=== PATIENT | female | born 2005 | race Caucasian/White ===

== ENCOUNTER 2024-11-16 19:30 | Emergency (ER) | payer BC, SELFPAY ==
[2024-11-16 19:37] VITALS: BP 124/65; PULSE 114; RESP 18; TEMP 36.9; O2SAT 98; BMI 22.3
--- NOTE | 2024-11-16 19:47 | CRLHL7_ITS ---
For Patients: As a result of the Century Cures Act, medical imaging exams and procedure reports are released immediately into your electronic medical record. You may view this report before your referring provider. If you have questions, please contact your health care provider. INDICATION: Injury to left face. COMPARISON: None. TECHNIQUE: Noncontrast CT of the face. FINDINGS: Asymmetric soft tissue swelling of the left face. There is an underlying fracture of the floor of the left orbit with a depressed fracture fragment extending into the left maxillary sinus cavity. Small amount of hyperdense blood products layering posteriorly within the left maxillary sinus. There is herniation of extraconal fat across the fracture defect (series 5, image 54) but no entrapment of the inferior rectus muscle. Fracture may also cross the infraorbital neural foramen. At injury to the nerve cannot be excluded. Remainder of the left orbit is normal. No retrobulbar hematoma. Normal left orbit. Normal symmetric extra-ocular muscles. No other facial fractures. The nasal bones and zygomatic arches are intact. Mastoid air cells are clear. Nasopharynx and oropharynx are clear. No inflammation within the paravertebral fat pads are Rich rule space. IMPRESSION: 1. Posttraumatic left orbital floor fracture. Herniation of extraconal fat across the fracture defect but no entrapment of the inferior rectus muscle. 2. Fracture across the left infraorbital neural foramen with possible injury to the underlying nerve. 3. No other facial fractures. 4. Remainder of the left orbit is normal. No retrobulbar hematoma Please note that all CT scans at this facility use dose modulation, iterative reconstruction, and/or weight-based dosing when appropriate to reduce radiation dose to as low as reasonably achievable. Dictated by William Olea MD @ 11/16/2024 8:03:53 PM (Electronically Signed)
--- NOTE | 2024-11-16 20:03 | ED_ITS ---
HPI - General Adult General Chief complaint: Eye Problems Stated complaint: Hit on left side of face with a Hockey Puck Time Seen by Provider: 11/16/24 19:44 History of Present Illness HPI narrative: This 19-year-old female comes in because of a injury to her face that just occurred prior to arrival. A trauma team activation was initiated. She was a spectator at a hockey game and the hockey puck was hit up high and hit her in the left cheek just below her eye. She has got a 1.5 cm laceration in this area. Her eye has swollen enough to where she is unable to open the eyelids. She does not report any pain when moving her eyes in their range of motion. She did not have loss of consciousness. She does not report any other injury. Related Data Allergies Allergy/AdvReac Type Severity Reaction Status Date / Time Penicillins Allergy Intermediate Verified 11/16/24 19:42 Review of Systems Status of ROS: Reports: 10 or more systems reviewed and unremarkable except as noted in History and below Narrative: Constitutional: No fevers, no weight gain or loss. Eyes: No discharge. No vision changes. HENT: No congestion, no sore throat, no ear pain. Cardiovascular: No chest pain, no palpitations. Respiratory: No shortness of breath, no wheezes, no cough. Gastrointestinal: No abdominal pain, no vomiting, no diarrhea. Genitourinary: No dysuria, no hematuria. Musculoskeletal: Normal range of motion. Skin: No rashes, no pruritis. Neurological: No dizziness, weakness, sensory change, speech change. Endo/Heme/Allergies: No bruising or bleeding. No polydipsia. Pysch: no suicidality, no anxiety, no insomnia. All other systems reviewed and are negative. PFSH PFS Social History Smoking Status: Never smoker How often do you have a drink containing alcohol: never AUDIT-C Alcohol total score: 0 Non-prescribed substance use: denies use Exam Narrative: Exam Narrative: Primary Survey: Vital Signs are within normal limits. Airway: Open. Breathing: Easy. Circulation: no obvious bleeding; normal capillary refill. Disability: GCS is 15. Normal pupillary response and motor movements. Secondary Survey: Head: 1.5 cm linear laceration overlying the left cheek bone. Some mild to moderate swelling in this area. Her eyelids are swollen enough to where she has difficulty opening the left eye. I did successfully open her eye and she has normal vision and normal appearing left eye with normal range of motion. Neck: No midline tenderness. ROM intact. Chest: Non tender. No external signs of trauma. Abdomen: Non tender. No rebound tenderness. Normal bowel sounds. Pelvis/Genitals: No tenderness to A/P and lateral stress. No blood at the urethral meatus. Extremities: Atraumatic. Back: No midline tenderness. No sign of injury. Primary and Secondary surveys are completed. The patient's GCS is 15. Const: Vital Signs, click to edit/add: Vital Signs - 24 hr 11/16/24 19:37 11/16/24 20:09 11/16/24 20:09 Temperature 98.4 F Pulse Rate 80 Pulse Rate [Right Pulse Oximeter] 114 H 88 Respiratory Rate 18 18 Blood Pressure 115/84 Blood Pressure [Ri ght Upper Arm] 124/65 115/84 Pulse Oximetry 98 98 98 Oxygen Delivery Me thod Room Air Room Air 11/16/24 20:21 11/16/24 20:31 Temperature Pulse Rate 80 78 Pulse Rate [Right Pulse Oximeter] Respiratory Rate 16 18 Blood Pressure 119/102 H 112/83 Blood Pressure [Ri ght Upper Arm] Pulse Oximetry 98 99 Oxygen Delivery Me thod Course Vital Signs Vital signs: Initial Vital Signs Temperature 98.4 F 11/16/24 19:37 Temperature Source Temporal Artery Scan 11/16/24 19:37 Pulse Rate 114 H 11/16/24 19:37 Pulse Rhythm Regular 11/16/24 19:37 Respiratory Rate 18 11/16/24 19:37 Blood Pressure 124/65 11/16/24 19:37 Blood Pressure Mean 84 11/16/24 19:37 Blood Pressure Position Sitting 11/16/24 19:37 Pulse Oximetry 98 11/16/24 19:37 Oxygen Delivery Method Room Air 11/16/24 19:37 Vital Signs Temperature 98.4 F 11/16/24 19:37 Pulse Rate 114 H 11/16/24 19:37 Respiratory Rate 18 11/16/24 19:37 Blood Pressure 124/65 11/16/24 19:37 Pulse Oximetry 98 11/16/24 19:37 Oxygen Delivery Method Room Air 11/16/24 19:37 Temperature 98.4 F 11/16/24 19:37 Pulse Rate 78 11/16/24 20:31 Respiratory Rate 18 11/16/24 20:31 Blood Pressure 112/83 11/16/24 20:31 Pulse Oximetry 99 11/16/24 20:31 Oxygen Delivery Method Room Air 11/16/24 20:09 Medical Decision Making MDM Narrative Medical decision making narrative: This 19-year-old female comes in with a facial injury as described above. CT imaging of the facial bones does show an inferior orbital floor fracture with a little bit of fat protrusion but no sign of muscle entrapment. Muscle entrapment is also absent on my exam is she is able to move her eyes in all directions that she normally would without any discomfort. She does not have any sign of hyphema there is no visual impairment and she does not have any nerve entrapment of the inferior orbital nerve. I did speak with an emergency physician at [facility] who confirmed these plans of discharging her home to allow this to heal without any further intervention. She does however have a 1.5 cm linear laceration overlying the cheek on the left side I did discuss repair options and recommended suture repair for best results. After anesthesia with 1% lidocaine I cleansed the wound and then used 6.0 Ethilon suture under magnification to nicely approximate the wound edges. Instructions regarding wound care were given including the need to have sutures removed in 5-7 days. I did provide an [employer] prescription for Toradol. Imaging Data CT Facial bones: Radiologist's impression: 1. Posttraumatic left orbital floor fracture. Herniation of extraconal fat across the fracture defect but no entrapment of the inferior rectus muscle. 2. Fracture across the left infraorbital neural foramen with possible injury to the underlying nerve. 3. No other facial fractures. 4. Remainder of the left orbit is normal. No retrobulbar hematoma Discharge Plan Discharge Clinical Impression: Fracture of orbital floor, Laceration Patient Disposition: Home w/ Parent or Adult Condition: Improved Additional Instructions: Keep wound clean and dry. Use medication as needed and directed. Sutures need to be removed in 5-7 days. Follow up with MD otherwise as needed. Follow Up/Referrals: Provider,Not a Local [Primary Care Provider] - Stand Alone Forms: US Biologic Info Instructions
[2024-11-16 20:09] VITALS: BP 115/84; PULSE 80; PULSE 88; RESP 18; O2SAT 98
[2024-11-16 20:21] VITALS: BP 119/102; PULSE 80; RESP 16; O2SAT 98
[2024-11-16 20:31] VITALS: BP 112/83; PULSE 78; RESP 18; O2SAT 99
--- OUTSIDE RECORDS SUMMARY | 2024-11-16 20:34 | XMS_ITS | Data Portability ---
Author Organization [place] [place] [facility], [id number] Address [address] [place] [address] Assessment Encounter Date Assessment Date Assessment LastModified by Organization Details LastModified Time 11/06/2024 11/06/2024 I spent a total of 30 minutes providing care for this patient including: preparing to see the patient, obtaining a medical history, completing a medically appropriate physical exam, completing documentation of visit information and plans in the EMR, counseling the patient and/or caregiver regarding her diagnosis, treatment options and follow up plans, as well as any necessary communication of subsequent test results to the patient, reviewing medical records, reviewing test results, [email or web address] Not available 11/06/2024 18:10:38 Plan of Treatment Reminders Order Date Submit Date Provider Last Modified By Organization Details Last Modified Time Details Appointments None recorded. Lab CT + NG DNA, PCR, unspecifi ed specimen [email or web address] ask, [address] [place] [address], [address], [place], [address], 4 12:10:17 Pap test, slide(s), cervical 2023 024 [facility], [address] [place] [address], [id number], [place], [address], 4 14:32:07 bacterial vaginosis + vaginitis panel, vaginal 2023 [address] aska, [address] [place] [address], [address], [place], [address], 15:42:44 Referral None recorded. Procedures None recorded. Surgeries None recorded. Imaging None recorded. Medication Orders Cytotec 200 mcg tablet 20[address] [facility], [address] [place] [address], [address], 4 12:10:14 Vestura (28) 3 mg-0.02 mg tablet 2023 [id number], [address] [place] [address], [place], [address], 4 12:10:14 Patient TargetsNo targets recorded. Patient Instructions Encounter Date Encounter Id Patient Instructions Last Modified By Organization Details Last Modified Time 07/05/2024 [id number] If you are currently seeking a primary care physician please call our office to schedule with Dr. Mecca Rooney. She is a family medicine physician available to see female patients, 12 and older within our [facility] locations. coestreich Not available 07/05/2024 10:36:47 - Encouraged breast self-awareness and monthly breast exams. - Calcium and vitamin D intake discussed. - Encouraged regular exercise. - Discussed cervical cancer screening guidelines. coestreich Not available 07/05/2024 10:36:47 Reason for Referral None Reported. Results Created Date Observation Date Name Description Value Unit Range Abnormal Flag Note LastModifiedBy Organization Detail LastModifiedTime 07/05/20 24 07/05/2024 GYNEC OLOGI C CYTOL OGY PAP SMEAR gynecologic cytology SEE RESULT S BELOW abnormal SPECI MEN SOURC E O[place] ing Cervi x BKR LAB AP CLIENT RELATIONSHIP CONSULTANT INTER PRETA TION: Atypi yancy squam ous cells of undet ermin ed saloni camarena (ASC- US) Elect daniel diamond by Jerri Gann MD on at 4:00 PM Path repor [email or web address] ments Imp Spec: Papan icola ou Test Limit ation s: Cervi yancy cytol ogy is a scree terrance test with limit ed sensi tivit y, and regul ar scree terrance is criti yancy for cance r preve ntion . Pap tests are prima rily effec tive for the diagn osis/ preve ntion of squam ous cell carci noma, not adeno carci noma or other cance rs. BKR LAB AP CLIENT RELATIONSHIP CONSULTANT ADEQU ACY: Satis facto ry for evalu ation , endoc ervic al/tr ansfo rmati on zone compo nent prese nt Path repor t.rel evant Hx Spec: none BKR LAB AP LMP: BKR LAB AP HPV REFLE X: Yes if ASCUS BKR LAB AP PREVI OUS ABNOR MAL: No BKR LAB AP PREVI OUS ABNL DX: N/A Path repor [email or web address] ments Imp Spec: The techn ical compo nent of this testi ng was compl eted at [facility] . Stain contr ols for all stain s resul lauren withi n this repor t have been revie wed and show appro priat e react ivity . Not Available [address], [place], [address], 09/04/2024 09:43:10 07/05/20 24 07/05/2024 HPV HIGH RISK TYPES DNA CERVI YANCY human papilloma virus 16 DNA Negati ve negati ve Not Available [address], [place], [address], 09/04/2024 09:43:11 07/05/20 24 07/05/2024 HPV HIGH RISK TYPES DNA CERVI YANCY human papilloma virus 18 DNA Negati ve negati ve Not Available [address], [place], [address], 09/04/2024 09:43:11 07/05/20 24 07/05/2024 HPV HIGH RISK TYPES DNA CERVI YNACY human papilloma virus other Positi ve negati ve abnormal Not Available [address], [place], [address], 09/04/2024 09:43:11 07/05/20 24 07/05/2024 HPV HIGH RISK TYPES DNA CERVI YANCY final diagnosis See note below This patie nt's sampl e is posit marita for other HR HPV DNA (type s 31, 33, 35, 39, 45, 51, 52, 56, 58, 59, 66 or 68), not HPV 16 or HPV 18 DNA. This resul t requi res clini yancy corre latio n with concu rrent cytol ogy findi ngs. METHO DOLOG Y: The BD COR syste m uses autom ated extra ction , simul taneo us ampli ficat ion of HPV (E6/E 7 oncog [place]) and beta- globi n, follo wed by real time detec tion of fluor escen t label ed HPV and beta globi n using speci fic oligo nucle otide probe s. The test speci fical ly ident ifies types HPV 16 DNA and HPV 18 DNA while concu rrent ly detec ting the rest of the high risk types (31, 33, 35, 39, 45, 51, 52, 56, 58, 59, 66 or 68). COMME NTS: This test is not inten ded for use as a scree terrance devic e for woman under age 30 with roz l cervi yancy cytol ogy. Resul ts shoul d be corre lated with cytol ogic and histo logic findi ngs. Close clini yancy follo w up is recom miki d. Not Available [address], [place], [address], 09/04/2024 09:43:11 07/05/20 24 07/05/2024 CT + NG DNA, PCR, unspe cifie d speci men source endoce rvivca l Not Available [address] [address], [place], [address], 07/05/2024 11:45:05 07/05/20 24 07/05/2024 CT + NG DNA, PCR, unspe cifie d speci men CT not detect ed not detect ed normal Not Available [address], [place], [address], 07/05/2024 11:45:05 07/05/20 24 07/05/2024 CT + NG DNA, PCR, unspe cifie d speci men GC not detect ed not detect ed normal Not Available [address], [place], [address], 07/05/2024 11:45:05 11/06/20 24 11/06/2024 bacte rial vagin osis + vagin itis panel , vagin al bacterial vaginosis positi ve negati ve abnormal Not Available [address], [place], [address], 11/06/2024 11:04:03 11/06/20 24 11/06/2024 bacte rial vagin osis + vagin itis panel , vagin al osmel group negati ve negati ve normal Not Available [address], [place], [address], 11/06/2024 11:04:03 11/06/20 24 11/06/2024 bacte rial vagin osis + vagin itis panel , vagin al trichomonas negati ve negati ve normal Not Available [address], [place], [address], 11/06/2024 11:04:03 Result Notes None recorded. Problems Name Problem SNOMED Code Status Onset Date Resolution Date Notes Provider Name and Address Organization Details Recorded Time Anxiety 61175244 Active 2023 follows w/ pmd LEANDRO CHANG PA-C [id number], [place], [address], [facility] 11:38:27 Acute vaginitis 27228107 [place] 20[place] [address], [place], [address], [facility] 4 11:03:56 Abdominal bloating 385804087 Active 2023 [place] [address], [place], [address], [facility] 4 11:05:07 Bacterial vaginosis 141707043 Active 2023 [place] [address], [place], [address], [facility] 4 16:09:27 Acne 58889278 Active 2023 [place] [address], [place], [address], [facility] 4 18:09:50 Problem Notes None recorded. Procedures Surgical History Date Name Laterality Status Provider Name and Address Organization Details Recorded Time Date of Last Pap Smear completed Cece Glasgow [facility] 07/27/2024 14:17:03 extraction of wisdom tooth completed Sailaja Samayoa [facility] 07/05/2024 11:31:38 Imaging Results None recorded. Procedure Notes None recorded. Medical Equipment None Reported. Allergies Allergen ID Allergen Name Allergen Category Reaction Reaction Severity Criticality Documentation Date Start Date Code Code System Note Provider Name and Address Organization Details Recorded Time 299694 Medicinal product containin g penicilli n and acting as antibacte rial agent (product) medicatio n rash Not available Not available 07/05/2024 73927 05 SNOMED Sailaja Rosech [facility], [facility] 4 11:25:17 Medications Name Sig Start Date Stop Date Status Note LastModified by Organization Details LastModified Time fluconazole 150 mg tablet TAKE 1 TABLET BY MOUTH NOW MAY REPEAT IN 72 HOURS 07/05 completed Not Available Not Available Not Available citalopram 10 mg tablet TAKE 1 TABLET BY MOUTH EVERY DAY FOR 90 DAYS active Not Available Not Available No t Available clarithromy ck 500 mg tablet TAKE 1 TABLET BY MOUTH TWICE A DAY FOR 5 DAYS 07/05 completed Not Available Not Available Not Available ofloxacin 0.3 % ear drops INSTILL 10 DROPS INTO BOTH EARS EVERY DAY FOR 7 DAYS 07/05 completed Not Available Not Available Not Available Metrogel Vaginal 0.75 % (37.5 mg/5 gram) Insert 1 applicato rful every day by vaginal route for 5 days. 2023 active Not Available Not Available Not Avai lable misoprostol 200 mcg tablet TAKE 2 TABLETS BY MOUTH DIRECTED 11/05 completed Not Available Not Available Not Available ciprofloxac in 0.3 %-dexametha sone 0.1 % ear drops,suspe nsion INSTILL 4 DROPS INTO AFFECTED EAR(S) TWICE A DAY FOR 7 DAYS 11/05 completed Not Available Not Available Not Available nitrofurant oin monohydrate /macrocryst als 100 mg capsule TAKE 1 CAPSULE BY MOUTH EVERY 12 HOURS WITH FOOD FOR 7 DAYS 07/05 completed Not Available Not Available Not Available Vestura (28) 3 mg-0.02 mg tablet TAKE 1 TABLET BY MOUTH EVERY DAY FOR 84 DAYS active Not Available Not Available No t Available Vitals Date Recorded Body weight Body mass index (BMI) Body height Systolic blood pressure Diastolic blood pressure Provider Name and Address Organization Details Last Updated DateTime 07/05/2024 04040.19 g 22.7 kg/m2 162.56 cm 114 mm[Hg] 72 mm[Hg] Sailaja Samayoa [facility] 4 11:28:31 Date Recorded Body height Body mass index (BMI) Body weight Systolic blood pressure Diastolic blood pressure Provider Name and Address Organization Details Last Updated DateTime 11/06/2024 162.56 cm 22.3 kg/m2 70078.01 g 112 mm[Hg] 62 mm[Hg] Valorie Ca [facility] 4 10:47:52 Social History Question Answer Notes LastModified by Organizat ion Details LastModified Time Tobacco Smoking Status Never Smoker Sailaja OestrOLE bernard [facility] 07/05/2024 11:25:18 What Is Your Level Of Alcohol Consumption? None Information not available 07/05/2024 What Is Your Level Of Caffeine Consumption? Occasional Information not available 07/05/2024 Are You Currently Employed? Yes Information not available 07/05/2024 What Type Of Diet Are You Following? REGULAR Information not available 07/05/2024 Do You Or Have You Ever Used E-cigarettes Or Vape? Never Used Electronic Cigarettes [email or web address] Information not available 11/06/2024 What Is Your Occupation? [employer] Information not available 07/05/2024 Country Of [employer] Informat ion not available 07/05/2024 History Of Domestic Violence No Information not available 07/05/2024 Have You Ever Been Or Currently Are A Victim Of Sexual Abuse? No Information not available 07/05/2024 Have You Ever Been Or Currently Are A Victim Of Physical Abuse? No Information not available 07/05/2024 What Is Your Relationship Status? Single Information not available 07/05/2024 Do You Use Any Illicit Or Recreational Drugs? No Information not available 07/05/2024 Are You Currently In School? Yes [employer] Information not available 07/05/2024 Do You Or Have You Ever Used Any Other Forms Of Tobacco Or Nicotine? No Information not available 07/05/2024 Sex: Unknown Functional Status Question Answer Note LastModified by Organization D etails LastModified Time What is your exercise level? Moderate Information not available 07/05/2024 Mental Status None recorded. Family History Relationship Description Onset Age of this Age Resolved Age Notes LastModified by Organization Details LastModified Time Mother Hypercholest erolemia coestreich Not available 07/05 11:25:18 Mother Depressive disorder coestreich Not available 07/05 11:25:18 Maternal Aunt Malignant tumor of breast Great Aunt rroverud Not available 07/05/2024 11:46:31 Maternal Grandmother Depressive disorder coestreich Not available 07/05 11:25:18 Maternal Grandmother Osteoporosis coestreich Not availabl e 07/05/2024 11:25:18 Paternal Uncle Malignant tumor of colon 40 rroverud Not available 2023 11:46:51 Maternal Uncle Hypercholest erolemia coestreich Not available 07/05 11:25:18 Maternal Grandfather Hypercholest erolemia coestreich Not available 07/05 11:25:18 Medical History Condition Response Psych- Anxiety Disorder Y Gynecological History Statement/Question Response History of Endometriosis N History of Abnormal PAP Y History of Recurrent Ovarian Cysts N Total lifetime partners Less than 5 Date of LMP 10/16/2024 Menstrual Cycle Length (days) 28 Date of Last HPV Test 07/05/2024 11 Sexually Active Y Age at Menarche: 11 Age at first intercourse 15 History of Sexually Transmitted Infectio n N Y HPV Vaccine Complete Current Control Method Combined Or al Contraceptive History of Fibroids N Date of Last Pap Smear 07/05/2024 Date of Last Cholesterol Screening 02/09 History of HPV Y Obstetrics History GPAL:G 0 P 0 0 0 0 Immunizations Vaccine Type Date Status Note Provider Nam e and Address Organization Details Recorded Time Hib, unspecified formulation 4 completed Sailaja O[place] null, [place] [facility] 07/05/2024 11:32:53 meningococcal B, OMV 1 completed Sailaja O[place], [place] [facility] 07/05/2024 11:32:53 meningococcal B, OMV 0 completed Sailaja O[place] null, [place] [facility] 07/05/2024 11:32:53 HPV9 5 completed Sailaja [place], [place] [facility] 07/05/2024 11:32:53 HPV9 6 completed Sailaja [place], [place] [facility] 07/05/2024 11:32:53 IPV 4 completed Sailaja O[place] null, [place] [facility] 07/05/2024 11:32:53 IPV 8 completed Sailaja O[place] null, [place] [facility] 07/05/2024 11:32:53 IPV 3 completed Sailaja Oestreich null, [facility] 07/05/2024 11:32:53 IPV 3 completed Sailaja Oestreich null, [facility] 07/05/2024 11:32:53 MMR 4 completed Sailaja Oestreich null, [facility] 07/05/2024 11:32:53 MMRV 7 completed Sailaja Oestreich null, [facility] 07/05/2024 11:32:53 COVID-19, mRNA, LNP-S, PF, 30 mcg/0.3 mL dose 1 completed Sailaja Oestreich null, [facility] 07/05/2024 11:32:53 COVID-19, mRNA, LNP-S, PF, 30 mcg/0.3 mL dose 1 completed Sailaja Oestreich null, [facility] 07/05/2024 11:32:53 COVID-19, mRNA, LNP-S, PF, 30 mcg/0.3 mL dose 1 completed Sailaja Oestreich null, [facility] 07/05/2024 11:32:53 COVID-19, mRNA, LNP-S, bivalent, PF, 30 mcg/0.3 mL dose 2 completed Sailaja Oestreich null, [facility] 07/05/2024 11:32:53 pneumococcal conjugate PCV 7 3 completed Sailaja Oestreich null, [facility] 07/05/2024 11:32:53 pneumococcal conjugate PCV 7 3 completed Sailaja Oestreich null, [facility] 07/05/2024 11:32:53 pneumococcal conjugate PCV 7 4 completed Sailaja Oestreich null, [facility] 07/05/2024 11:32:53 pneumococcal conjugate PCV 7 3 completed Sailaja Oestreich null, [facility] 07/05/2024 11:32:53 COVID-19, mRNA, LNP-S, PF, alfredo-sucrose, 30 mcg/0.3 mL 3 completed Sailaja Oestreich null, [facility] 07/05/2024 11:32:53 Tdap 4 completed Sailaja Oestreich null, [facility] 07/05/2024 11:32:53 Tdap 4 completed Sailaja Oestreich null, [facility] 07/05/2024 11:32:53 Novel Lhkzpuswa-[id number], all formulations 0 completed Sailaja Oestreich null, [facility] 07/05/2024 11:32:53 varicella 4 completed Sailaja Oestreich null, [facility] 07/05/2024 11:32:53 Influenza, split virus, trivalent, preservative 4 completed Sailaja Oestreich null, [facility] 07/05/2024 11:32:53 Influenza, split virus, trivalent, preservative 4 completed Sailaja Oestreich null, [facility] 07/05/2024 11:32:53 Influenza, split virus, trivalent, preservative 5 completed Sailaja Oestreich null, [facility] 07/05/2024 11:32:54 Influenza, split virus, trivalent, preservative 3 completed Sailaja Oestreich null, [facility] 07/05/2024 11:32:54 Influenza, split virus, trivalent, PF 8 completed Sailaja Oestreich null, [facility] 07/05/2024 11:32:54 HPV, quadrivalent 4 completed Sailaja Oestreich null, [facility] 07/05/2024 11:32:54 Hep B, adolescent or pediatric 4 completed Sailaja Oestreich null, [facility] 07/05/2024 11:32:54 Hep B, adolescent or pediatric 3 completed Sailaja [place] null, [place] [facility] 07/05/2024 11:32:54 Hep A, ped/adol, 2 dose 7 completed Sailaja [place], [place] [facility] 07/05/2024 11:32:54 Hep A, ped/adol, 2 dose 8 completed Sailaja [place], [place] [facility] 07/05/2024 11:32:54 Hib (PRP-T) 3 completed Sailaja [place], [place] [facility] 07/05/2024 11:32:54 Hib (PRP-T) 3 completed Sail[place] [facility] 07/05/2024 11:32:54 Hib (PRP-T) 3 completed Sail[place] [facility] 07/05/2024 11:32:54 meningococcal MCV4P 0 completed Sailaja [place], [place] [facility] 07/05/2024 11:32:54 meningococcal MCV4P 4 completed Sailaja [place], [place] [facility] 07/05/2024 11:32:54 DTaP 8 completed Sailaja [place], [place] [facility] 07/05/2024 11:32:54 DTaP 3 completed Sailaja [place], [place] [facility] 07/05/2024 11:32:54 DTaP 4 completed Sailaja [place] [facility] 07/05/2024 11:32:54 DTaP 3 completed Sailaja [place] [facility] 07/05/2024 11:32:54 DTaP 3 completed Sailaja [place] [facility] 07/05/2024 11:32:54 Influenza, split virus, quadrivalent, PF 0 completed Sailaja [place] [facility] 07/05/2024 11:32:54 Influenza, split virus, quadrivalent, PF 3 completed Sailaja [place] [facility] 07/05/2024 11:32:54 Influenza, split virus, quadrivalent, PF 2 completed Sailaja [place] [facility] 07/05/2024 11:32:54 Influenza, split virus, quadrivalent, PF 9 completed Sailaja [place], [place] [facility] 07/05/2024 11:32:54 Past Encounters Encounter ID Performer Location Encounter Start Date Encounter Closed Date Diagnosis/Indication Diagnosis SNOMED-CT Code Diagnosis ICD10 Code Diagnosis Note [id number] LEANDRO CHANG PA-C [id number] Yenny_ARVIND [address] [facility],[address] [place] [address], [place] [address] 07/05/2024 11:23:27 07/05/2024 12:00:22 Gynecologic examination [id number] Z01.419 Cervical Cancer Screening: {{Collecte d today No longer done due to hysterecto my Not indicated due to age Review ed cervical cancer screening guidelines , pap no longer indicated after 65 since she is low risk Up to date*}}Fas ting labs: {{Complete d through insurance Fasting labs done today Ashley ged by PMD Recomm end fasting labs, will return to clinic for fasting lipid, glucose, and TSH reflex Up to date}}Shefali st Cancer Screening: {{Not indicated due to age or family history* N ot indicated- s/p double mastectomy Patient declines, educated on current screening recommenda tions Ramírez mmended- reviewed screening guidelines and given informatio n on how to schedule S cheduled U p to date}}[place]helby n Cancer Screening: {{Cologuar d pending Co nsidering Cologuard, will contact us if she wants an order placed Not indicated due to age or family history* P atient declines, educated on current screening recommenda tions Ramírez mmended-re viewed screening guideline and other screening options. Given instructio ns on how to schedule S cheduled U p to date}} Risk Factors for Osteoporos is: {{She does not have an indication for early DEXA screening at this time Fract ure since menopause History of chronic steroid use She has a known medical cause of bone loss or fracture > 65 years old 50 and older with 1 additional risk factor}} {{BMI<21 H istory of hip fracture in a parent Eric ght <127 lbs}}{{BMI <21 Histor y of hip fracture in a parent Eric ght <127 lbs}}Osteo porosis Screening: {{Declines DEXA scan- we reviewed screening recommenda tions Not indicated due to age* Manag ed by endocrine Managed by PMD Recomm ended- reviewed screening guideline, informatio n given on how to schedule R isk factors for osteoporos is were taken into considerat ion and she is low risk, DEXA is not indicated at this time Sched uled Up to date}} Vaccines: {{Managed by PMD Review ed current recommenda tions Up to date}}COVI D (yearly): {{Agrees to vaccine today Comp leted this year* Decl tashi Decli radha- not tolerated/ allergy Re commended the vaccine}}I nfluenza (yearly): {{Agrees to vaccine today Comp leted this year* Decl tashi Decli radha- not tolerated/ allergy Re commended the vaccine}}H PV Vaccine (45): {{Agrees to HPV vaccine today* Agr ees to subsequent HPV vaccine dose today Decl tashi HPV vaccine- reviewed current recommenda tions Decl tashi- not tolerated/ allergy No t indicated due to age Recomm end HPV vaccine Se ana cristina completed Started series but recommend she completes Unsure of vaccine status - recommend patient find vaccine record}}Td ap or Td (q 10 years): {{Agrees to the vaccine today Comp leted- up to date* Decl tashi Decli radha- not tolerated/ allergy Re commended a tetanus booster Un sure of vaccine status - recommend patient find vaccine record}}Sh ingles Vaccine (50 & Older): {{Complete d series Dec lines Decl tashi- not tolerated/ allergy No t indicated due to age or risk factors* R ecommended the Shingles vaccine Un sure of vaccine status - recommend patient find vaccine record}}RS V (>60 who are at risk): {{Complete d Declines Declines- not tolerated/ allergy No t indicated due to age or risk factors* R ecommended the vaccine Un sure of vaccine status- recommend patient find vaccine record}}Pn eumococcal (>65): {{Complete d Declines Declines- not tolerated/ allergy No t indicated due to age or risk factors* R ecommended the vaccine Un sure of vaccine status - recommend patient find vaccine record}} Anxiety 15756755 F41.9 managed by pmd. Surveillan ce of oral contraception [id number] Z30.41 denies ci to use.will give refill until she makes her decision on the IUD. Contracept ion education 780605242 Z30.09 Discussed Mirena, Kyleena, and Paragard IUD's. Discussed common side effects and risks of each. Reviewed common bleeding patterns. Discussed the insertion process. Recommend she check insurance coverage prior to insertion. If she wants to proceed, she will call for an appointmen t during her menses. considerin g Mirena or Kyleena. Given her hx of heavy periods, even on ocp changing 2-3 hours w/ a super, may consider Mirena over Kyleena. Screening for malignant neoplasm of cervix [id number] Z12.4 [id number] RENALDO MONTENEGRO MD [id number] T_LETOHATCHEE [address] [facility],[address] [address] 11/06/2024 10:38:02 11/09/2024 14:36:22 Acute vaginitis [id number] N76.0 Will evaluate for vaginitis and treat appropriat peewee. She would prefer vaginal cream. She does not plan to consume alcohol. Abdominal bloating 58704 9008 R14.0 Recommend pelvic ultrasound to assess anatomy and rule out CLIENT RELATIONSHIP CONSULTANT pathology. Contracept ion care management [id number] Z30.9 Discussed changing ocp to better reduce hormonal acne. She is considerin g switch. She is considerin g IUD as well. Reviewed use of spironolac tone with her IUD to manage. Reviewed IUD placement in detail. Reviewed bleeding profile. Acne 36583334 L70.9 See above. Health Concerns Section Related Observation LastModified by Organization Detai ls LastModified Time None Recorded Concern Status LastModified by Organization Details LastModified Time None Recorded Advance Directives Directive None Recorded Payers Encounter Date Sequence Insurance Name Policy Number Policy Dominguez Covered Member ID Dominguez Member ID Guarantor Name 07/05/2024 1 [place] [id number] Farshad Chicas [id number] Sia Chicas 11/06/2024 1 [place] [id number] Farshad Chicas [id number] Sia Chicas Notes Date Note Type Note Provider Name and Address Organization Details Recorded Time 07/05/2024 text/html Annual Premenopa usal ([facility])Reported bypatient.Patient Relationship To Practice:established patient Current Medical History:active medical problems ; no recent surgeries or hospitalizations Relevant Family History:family history of breast cancer;family history of colon cancer; no family history of ovarian cancer; no family history of uterine cancer; no family history of blood clots/DVT Menstrual History:Frequency of Menses: monthly; Duration of Flow: 7 days; Quantity of Flow: light; Clots: no; Cramps: yes Contraceptive Method:satisfied: oral contraceptives Sexually Active:Yes: same partner STI Screen:declines Health/Prevention:Exer cise: yes; Multivitamins: yes; Vitamin D: yes; Adequate Calcium Intake: yes; Breast Self Exam: no; Seat Belt Use: yes; Tobacco Use: no; Safe at home: yes; Mental Health Screen: normal Mammogram:not applicable Pap Smear +/- HPV Cotesting:due Colonoscopy:not applicable Patient has:Primary Care Physician: yesNotes:No questions/concerns; Sailaja Colón/RAGHAVENDRA Hereditary Cancer Risk Assessment HPI.LowRisk The patient completed the familial health questionnaire. She is at low risk for a genetic cancer syndrome. Imported from [employer] on 07/05/2024 LEANDRO CHANG PA-C [id number] [facility],[address], [place], [address], [place] - [facility] COTTRELL BLOWER 07/05/2024 12:10:51 11/06/2024 text/html Here today for a tampon removal, did mange to get the tampon out and wanted to make sure there is no Bacterial infection. Did notice odor and abnormal discharge. Pt.has no other concerns. HJLPN Period ended 4 days ago. She feels like at most the tampon was in for 4 days.+ vaginal discharge. + odor. Concerned about infection.History of yeast infections. No new sexual partners. Struggling with hormonal acne despite OCP. She has been on current OCP for 4 years.Feeling very bloated all the time. She has done elimination diet. She has been to the payroll benefits administrator. She has not seen GI. Normal bowel movements. Bloating has been going years[place] [address] [facility],[address], [place], [address], [place] [facility] COTTRELL BLOWER 11/06/2024 18:10:54 OBGyn Episode No OBEpisode recorded.
--- OUTSIDE RECORDS SUMMARY | 2024-11-16 20:34 | XMS_ITS | Continuity of Care Document ---
Author Organization [facility] - TILE SETTER SUPERVISOR, [id number] Address [address] [place] [id number] Assessment Encounter Date Assessment Date Assessment LastModified [...] Modified Time Details Appointments None recorded. Lab bacterial vaginosis + vaginitis panel, vaginal [address], [address] [place] [address], [address], [address], 15:42:44 Referral None recorded. Procedures None recorded. Surgeries None recorded. Imaging None recorded. Medication Orders None recorded. Patient TargetsNo targets recorded. Patient InstructionsNo instructions recorded. Reason for Referral None Reported. Results Created Date Observation Date Name Description Value Unit Range Abnormal Flag Note LastModifiedBy Organization Detail LastModifiedTime 11/06/20 24 11/06/2024 bacte rial vagin osis + vagin itis panel , vagin al bacterial vaginosis positi ve negati ve abnormal Not Available [address] [place] [address] [address], [place], [address], 11/06/2024 11:04:03 11/06/20 24 11/06/2024 bacte rial vagin osis + vagin itis panel , vagin al osmel group negati ve negati ve normal Not Available [address], [place], [address], 11/06/2024 11:04:03 11/06/20 24 11/06/2024 bacte rial vagin osis + vagin itis panel , vagin al trichomonas negati ve negati ve normal Not Available [address] [facility] [address], [place], [address], 11/06/2024 11:04:03 Result Notes None recorded. Problems Name Problem SNOMED Code Status Onset Date Resolution Date Notes Provider Name and Address Organization Details Recorded Time Anxiety 29432065 Active 2023 follows w/ pmd LEANDRO CHANG PA-C [address], [place], [address], [facility] - Premier TILE SETTER SUPERVISOR 4 11:38:27 Acute vaginitis 87684592 Active 20[place] [address], [place], [address], [place] [facility] TILE SETTER SUPERVISOR 4 11:03:56 Abdominal bloating 930760409 Active 2023 [place] [address], [place], [address], [facility] - [facility] TILE SETTER SUPERVISOR 4 11:05:07 Bacterial vaginosis 012943528 Active 2023 [place] [address], [place], [address], [place] [facility] TILE SETTER SUPERVISOR 4 16:09:27 Acne 58645286 Active 2023 [place] [address] [address], [facility] [place], [address], [facility] TILE SETTER SUPERVISOR 4 18:09:50 Problem Notes None recorded. Procedures Surgical History Date Name Laterality Status Provider Name and Address Organization Details Recorded Time 4 Date of Last Pap Smear completed Cece Glasgow [facility] TILE SETTER SUPERVISOR 07/27/2024 14:17:03 extraction of wisdom tooth completed Sailaja Samayoa [facility] TILE SETTER SUPERVISOR 07/05/2024 11:31:38 Imaging Results None recorded. Procedure Notes None recorded. Medical Equipment None Reported. Allergies Allergen ID Allergen Name Allergen Category Reaction Reaction Severity Criticality Documentation Date Start Date Code Code System Note Provider Name and Address Organization Details Recorded Time 817520 Medicinal product containin g penicilli n and acting as antibacte rial agent (product) medicatio n rash Not available Not available 07/05/2024 18060 05 SNOMED Sailaja [place] null, [facility] TILE SETTER SUPERVISOR 4 11:25:17 Medications Name Sig Start Date [...] No t Available Vitals Date Recorded Body height Body mass index (BMI) Body weight Systolic blood pressure Diastolic blood pressure Provider Name and Address Organization Details Last Updated DateTime 11/06/2024 162.56 cm 22.3 kg/m2 02223.01 g 112 mm[Hg] 62 mm[Hg] Valorie Medina TILE SETTER SUPERVISOR 10:47:52 Social History Question Answer Notes LastModified by Organizat ion Details LastModified Time Tobacco Smoking Status Never Smoker [place] TILE SETTER SUPERVISOR 07/05/2024 11:25:18 What Is Your Level Of Alcohol Consumption? None Information not available 07/05/2024 What Is Your Level Of Caffeine Consumption? Occasional Information not available 07/05/2024 Are You Currently Employed? Yes Information not available 07/05/2024 What Type Of Diet Are You Following? REGULAR Information not available 07/05/2024 Do You Or Have You Ever Used E-cigarettes Or Vape? Never Used Electronic Cigarettes [id number] Information not available 11/06/2024 What Is Your Occupation? [employer] Information not available 07/05/2024 Country Of [facility] Informat ion not available 07/05/2024 History Of [...] 07/05/2024 Are You Currently In School? Yes [employer] Information not available 07/05/2024 Do [...] completed Sailaja [place] null, [place] [employer]LE SETTER SUPERVISOR 07/05/2024 11:32:53 meningococcal B, OMV 1 completed Sailaja [place] [employer] SUPERVIS[employer] 07/05/2024 11:32:53 meningococcal B, OMV 0 completed Sailaja [place] [employer] SUPER[employer] 07/05/2024 11:32:53 HPV9 5 completed Sailaja [place] [employer] SUPER[employer] 07/05/2024 11:32:53 HPV9 6 completed Sailaja [place] [employer] SUPERVIS[employer] 07/05/2024 11:32:53 IPV 4 completed Sailaja [place] [employer] SET[place] SUPERVIS[employer] 07/05/2024 11:32:53 IPV 8 completed Sailaja [place] [employer] SUPER[employer] 07/05/2024 11:32:53 IPV 3 completed Sailaja [place] [employer] SET[place] SUPERVIS[employer] 07/05/2024 11:32:53 IPV 3 completed Sailaja [place] [employer] SUPERVIS[employer] 07/05/2024 11:32:53 MMR 4 completed Sailaja [place] [employer] [employer] SUPERVIS[employer] 07/05/2024 11:32:53 MMRV 7 completed Sailaja [place] [employer] SUPERVIS[employer] 07/05/2024 11:32:53 COVID-19, mRNA, LNP-S, PF, 30 mcg/0.3 mL dose 1 completed Sailaja [place], [place] [facility] [employer] SETTER SUPERVISOR 07/05/2024 11:32:53 COVID-19, mRNA, LNP-S, PF, 30 mcg/0.3 mL dose 1 completed Sailaja [place] null, [place] [facility] [employer]LE SETTER SUPERVISOR 07/05/2024 11:32:53 COVID-19, mRNA, LNP-S, PF, 30 mcg/0.3 mL dose 1 completed Sailaja [place]reich null, [place] [facility] TILE SETTER SUPERVISOR 07/05/2024 11:32:53 COVID-19, mRNA, LNP-S, bivalent, PF, 30 mcg/0.3 mL dose 2 completed Sailaja Oestreich null, [facility] 07/05/2024 11:32:53 pneumococcal conjugate PCV 7 3 completed Sailaja [place]reich null, [place] [facility] 07/05/2024 11:32:53 pneumococcal conjugate PCV 7 3 completed Sailaja Oestreich null, [facility] 07/05/2024 11:32:53 pneumococcal conjugate PCV 7 4 completed Sailaja Oestreich null, [facility] 07/05/2024 11:32:53 pneumococcal conjugate PCV 7 3 completed Sailaja Oestreich null, [facility] 07/05/2024 11:32:53 COVID-19, mRNA, LNP-S, PF, alfredo-sucrose, 30 mcg/0.3 mL 3 completed Sailaja Oestreich null, [facility] 07/05/2024 11:32:53 Tdap 4 completed Sailaja Oestreich null, [facility] 07/05/2024 11:32:53 Tdap 4 completed Sailaja Oestreich null, [facility] 07/05/2024 11:32:53 Novel [id number], all formulations 0 completed Sailaja Oestreich null, [facility] TILE SETTER SUPERVISOR 07/05/2024 11:32:53 varicella 4 completed Sailaja Oestreich null, [facility] 07/05/2024 11:32:53 Influenza, split virus, trivalent, preservative 4 completed Sailaja Oestreich null, [facility] 07/05/2024 11:32:53 Influenza, split virus, trivalent, preservative 4 completed Sailaja Oestreich null, [place] TILE SETTER SUPERVISOR 07/05/2024 11:32:53 Influenza, split virus, trivalent, preservative 5 completed Sailaja [place] null, [place] [facility] [employer] SETTER SUPERVISOR 07/05/2024 11:32:54 Influenza, split virus, trivalent, preservative 3 completed Sailaja [place] null, [place] [facility] [employer] SETTER SUPERVISOR 07/05/2024 11:32:54 Influenza, split virus, trivalent, PF 8 completed Sailaja [place] [facility] [employer] SETTER SUPERVIS[employer] 07/05/2024 11:32:54 HPV, quadrivalent 4 completed Sailaja [place] null, [place] [facility] [employer] SETTER SUPERVIS[employer] 07/05/2024 11:32:54 Hep B, adolescent or pediatric 4 completed Sailaja [place] null, [place] [facility] [employer] SUPER[employer] 07/05/2024 11:32:54 Hep B, adolescent or pediatric 3 completed Sailaja [place] null, [place] [facility] [employer] SUPER[employer] 07/05/2024 11:32:54 Hep A, ped/adol, 2 dose 7 completed Sailaja [place] null, [place] [facility] [employer] 07/05/2024 11:32:54 Hep A, ped/adol, 2 dose 8 completed Sailaja [place] null, [place] [facility] [employer] SUPER[employer] 07/05/2024 11:32:54 Hib (PRP-T) 3 completed Sailaja [place] null, [place] [facility] [employer] SUPER[employer] 07/05/2024 11:32:54 Hib (PRP-T) 3 completed Sailaja [place] [facility] [employer] SUPER[employer] 07/05/2024 11:32:54 Hib (PRP-T) 3 completed Sailaja [place] [facility] [employer] SUPER[employer] 07/05/2024 11:32:54 meningococcal MCV4P 0 completed Sailaja [place] null, [place] [facility] [employer] SET[employer] SUPERVIS[employer] 07/05/2024 11:32:54 meningococcal MCV4P 4 completed Sailaja Oestreich null, [place] [facility] TILE SETTER SUPERVISOR 07/05/2024 11:32:54 DTaP 8 completed Sailaja Oestreich null, [place] TILE SETTER SUPERVISOR 07/05/2024 11:32:54 DTaP 3 completed Sailaja Oestreich null, [place] TILE SETTER SUPERVISOR 07/05/2024 11:32:54 DTaP 4 completed Sailaja Oestreich null, [place] TILE SETTER SUPERVISOR 07/05/2024 11:32:54 DTaP 3 completed Sailaja Oestreich null, [place] TILE SETTER SUPERVISOR 07/05/2024 11:32:54 DTaP 3 completed Sailaja [place] null, [place] TILE SETTER SUPERVISOR 07/05/2024 11:32:54 Influenza, split virus, quadrivalent, PF 0 completed Sailaja [place] null, [place] TILE SETTER SUPERVISOR 07/05/2024 11:32:54 Influenza, split virus, quadrivalent, PF 3 completed Sailaja [place] null, [place] TILE SETTER SUPERVISOR 07/05/2024 11:32:54 Influenza, split virus, quadrivalent, PF 2 completed Sailaja [place] null, [place] TILE SETTER SUPERVISOR 07/05/2024 11:32:54 Influenza, split virus, quadrivalent, PF 9 completed Sailaja [place] null, [place] TILE SETTER SUPERVISOR 07/05/2024 11:32:54 Past Encounters Encounter ID Performer Location Encounter Start Date Encounter Closed Date Diagnosis/Indication Diagnosis SNOMED-CT Code Diagnosis ICD10 Code Diagnosis Note [id number] RENALDO MONTENEGRO MD [id number] [address] [facility],[place] [address] [place] [address] 11/06/2024 10:38:02 11/09/2024 14:36:22 Acute vaginitis 25001965 N76.0 Will evaluate for vaginitis and treat appropriat peewee. She would prefer vaginal cream. She does not plan to consume alcohol. Abdominal bloating 93922 9008 R14.0 Recommend pelvic ultrasound to assess anatomy and rule out BURRING MACHINE OPERATOR pathology. [facility] management [id number] Z30.9 Discussed changing ocp to better reduce hormonal acne. She is considerin g switch. She is considerin g IUD as well. Reviewed use of spironolac tone with her IUD to manage. Reviewed IUD placement in detail. Reviewed bleeding profile. Acne 36644151 L70.9 See above. Health Concerns Section Related Observation LastModified by Organization Detai ls LastModified Time None Recorded Concern Status LastModified by Organization Details LastModified Time None Recorded Payers Encounter Date Sequence Insurance Name Policy Number Policy Dominguez Covered Member ID Dominguez Member ID Guarantor Name 11/06/2024 1 [place] [id number] Farshad Chicas [id number] Sia Chicas Notes Date Note Type Note Provider Name and Address Organization Details Recorded Time 11/06/2024 text/html Here today for a tampon [...] elimination diet. She has been to the flexo folder gluer operator. She has not seen GI. Normal bowel movements. Bloating has been going [place] [address] [facility],[address], [place], [address], [place] [facility] TILE SETTER SUPERVISOR 11/06/2024 18:10:54 OBGyn Episode No OBEpisode recorded.
--- OUTSIDE RECORDS SUMMARY | 2024-11-16 20:34 | XMS_ITS | Patient Health Record ---
Author Organization [facility] Address [address] [place] [address] [address] [place] [address] Care Team Providers Care Cubing Machine Tender Name Role Phone Anna Sanchez Primary Care Provider User, Clinician Unavailable [phone] Ludmila Reid Unavailable [phone] Allergies Allergen (clinical drug ingredient) Drug/Non Drug Allergy documented on EMR Reaction Allergy Type Onset Date Status Penicillin (uncoded) Unknown Allergy Active Results Component Value Reference Range Notes Urinalysis U/A Reflex to Eduardo ro Reviewed date:02/06/2024 03:13:34 PM Interpretation:Abnormal Performing Lab: Notes/Report: A microscopic urine has been ordered. See separate report. Testing performed at: [address] [place] [address] Urine Culture Reviewed date:2024 08:14:54 AM Interpretation:UTI/ sensitive to antibiotics Performing Lab: Notes/Report: URINE CULTURE SEE RESULTS BELOW SPECIMEN SOURCE Urine Urine, Midstream CULTURE RESULTS ORGANISM 1: ESCHERICHIA COLI 50,000-100,000 CFU/mL Escherichia coli REPORT STATUS FINAL 02/07/2024 ESCHERICHIA COLI EDUARDO mcg/mL Interp Ampicillin 8 Susceptible Ampicillin/ Sulbactam 4 Susceptible Piperacillin/Tazobactam <= 4 Susceptible Cefazolin <= 4 Susceptible Cefazolin EDUARDO breakpoints are for the treatment of uncomplicated urinary tract infections. For the treatment of systemic infections, please contact the laboratory for additional testing. Cefoxitin <= 4 Susceptible Ceftazidime <= 1 Susceptible Ceftriaxone <= 1 Susceptible Cefepime <= 1 Susceptible Gentamicin <= 1 Susceptible Tobramycin <= 1 Susceptible Ciprofloxacin <= 0.25 Susceptible Levofloxacin <= 0.12 Susceptible Nitrofurantoin <= 16 Susceptible Trimethoprim/Sulfamethoxaz ole <=1/19 Susceptible Urine Micro Reviewed date:02/06/2024 03:13:24 PM Interpretation:abnormal Performing Lab: Notes/Report: Testing performed at: [address] [place] [id number] Reason For Referral No Information Medications Medication SIG (Take, Route, Fr equency, Duration) Notes Start Date End Date Status Vestura 3-0.02 MG 1 tablet Orally Once a day for 84 days Active CeleXA 10 MG 1 tablet Orally Once a day for 90 days 02/01/2022 Active Vitamin D Active Immunizations Vaccine Route Administration Date Status Comme nts Bexsero (MenB) IM Intramuscular 06/17/2020 Administered Bexsero (MenB) IM Intramuscular 04/28/2021 Administered [id number] Unknown 08/10/2023 Administered COVID-19 Pfizer (Comirnaty-PFR) Unknown 02/09/2021 Administered COVID-19 Pfizer (Comirnaty-PFR) Unknown 03/09/2021 Administered COVID-19 Pfizer (Comirnaty-PFR) Unknown 10/28/2021 Administered DTaP (under 7yrs) Unknown 2003 Administered DTaP (under 7yrs) Unknown 2003 Administered DTaP (under 7yrs) Unknown 2003 Administered DTaP (under 7yrs) Unknown 05/15/2004 Administered DTaP (under 7yrs) Unknown 03/07/2008 Administered H1N1 Unknown 11/19/2009 Administered Hep A (1-18 yrs) Unknown 02/24/2007 Administered Hep A (1-18 yrs) Unknown 03/07/2008 Administered Hep B (0-19yrs) Unknown 2003 Administered Hep B (0-19yrs) Unknown 2003 Administered Hep B (0-19yrs) Unknown 05/15/2004 Administered HIB Unknown 2003 Administered HIB Unknown 2003 Administered HIB Unknown 2003 Administered HIB Unknown 05/15/2004 Administered HPV4 IM Intramuscular 06/11/2014 Administered HPV9* IM Intramuscular 06/04/2015 Administered HPV9* IM Intramuscular 06/07/2016 Administered Influenza (3yrs+) Unknown 10/15/2006 Administered Influenza (3yrs+) Unknown 09/23/2008 Administered Influenza (6-35 months) Unknown 2003 Administered Influenza (6-35 months) Unknown 2003 Administered Influenza (6-35 months) Unknown 08/12/2004 Administered Influenza (6-35 months) Unknown 09/16/2005 Administered Influenza P-Free* IM Intramuscular 08/07/2020 Administered Influenza P-Free* Unknown 08/19/2022 Administered Influenza P-Free* Unknown 08/10/2023 Administered IPV Unknown 2003 Administered IPV Unknown 2003 Administered IPV Unknown 02/12/2004 Administered IPV Unknown 03/07/2008 Administered Menactra IM Intramuscular 06/11/2014 Administered Menactra IM Intramuscular 11/20/2019 Administered MMR Unknown 02/12/2004 Administered MMRV Unknown 02/24/2007 Administered Prevnar (PCV 7) Unknown 2003 Administered Prevnar (PCV 7) Unknown 2003 Administered Prevnar (PCV 7) Unknown 2003 Administered Prevnar (PCV 7) Unknown 08/12/2004 Administered Tdap IM Intramuscular 06/11/2014 Administered Tdap IM Intramuscular 03/29/2024 Administered Varicella Unknown 02/12/2004 Administered Problems Problem Type SNOMED Code ICD Code Onset Dates Problem Status W/U Status Risk Notes Problem 331776621 Sore throat (J02.9) Active confirmed Problem Allergic rhinitis (68895803) Allergic rhinitis (J30.9) Active confirmed Problem Vaginal discharge (138332330) Vaginal discharge (N89.8) Active confirmed Problem [id number] Adjustment disorder with anxious mood (F43.22) Active confirmed Problem 323703307 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, followed by dermatology specialists Problem 177121349 Elevated serum cholesterol (E78.9) Active confirmed Vital Signs Temperature 98.5 degrees Fahrenheit 02/06/2024 Height 64.25 in 03/29/2024 Weight 123 lbs 03/29/2024 BMI 20.95 kg/m2 03/29/2024 Encounters Encounter Location Date Provider Diagnosis [facility] [address] [place] [address] 02/06/2024 Ludmila Reid Vaginal discharge N89.8 and Urinary tract infection, site not specified N39.0 [facility] [address] [place] [address] 03/29/2024 Anna Sanchez Encounter for general adult medical examination without abnormal findings Z00.00 ; Adjustment disorder with anxious mood F43.22 and Elevated serum cholesterol E78.9 [facility] [address] [place] [address] 02/06/2024 Ludmila Reid [facility] [address] [place] [id number] 2024 Anna Sanchez [facility] [address] [place] [address] 03/29/2024 Clinician User [facility] [address] [place] [address] 03/29/2024 Clinician User Assessments Encounter Date Diagnosis (ICD Code) Assessment Notes Treatment Notes Treatment Clinical Notes Section Notes 02/06/2024 Vaginal discharge (ICD-10 - N89.8) 02/06/2024 Urinary tract infection, site not specified (ICD-10 - N39.0) 1. Iniitally discussed with Sia that probably a yeast infection, after she left the Urine results came back and decided to start antibiotic 2. She is going down to college in [place] today. 03/29/2024 Encounter for general adult medical examination without abnormal findings (ICD-10 - Z00.00) 03/29/2024 Adjustment disorder with anxious mood (ICD-10 - F43.22) feels stable, not ready to take time off meds. 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. ok to do med check televisit in 6 months. 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 Plan Of Treatment Future Test Test Name Order Date Lipid Panel w Reflex to Direct LDL 03/31 Insurance Providers Payer Name Payer Address Payer Phone Subscriber Number Group Number Insured Name Patient Relationship to Insured Coverage Start Date Coverage End Date [employer] [address] [address] [place] [address] [id number] MARINA PEDROZA Natural Child - Insured has Financial Responsibility Medical (General) History Medical History History ICD Code [place] 7 lbs 2 oz, breast fed 03 Breast milk jaundice 03 Recurrent urticaria 05/07/1005/2017- vitamin d deficiency; supplement started 05/29/2021- Dermatology Speci alists- atypical nevus palm, clinically following undefined
== END 2024-11-16 21:17 | disposition home or self-care (01) ==
PROVIDERS: Emergency Provider Emergency Medicine Emergency Medical Services
DX: S02.32XA Fracture of orbital floor, left side, initial encounter for closed fracture (principal); S01.412A Laceration without foreign body of left cheek and temporomandibular area, initial encounter; W21.220A Struck by ice hockey puck, initial encounter
CPT/HCPCS: 12011; 70486; 99284; 99291